=== PATIENT | female | born 1960 | race Caucasian/White ===

== ENCOUNTER 2017-04-16 10:00 | Emergency (ER) | payer BC, OTHER ==
[~2017-04-16] VITALS: Ht 162.6 cm; Wt 128.4 kg
[~2017-04-16 10:00] MED LIST: ASPIRIN325 PO; CELEXA40 MG PO; CIPROFLOXACIN500 M1 PO; CITRATE OF MAG296 ML PO; COLACE100 MG PO; CYMBALTA30 MG PO; ESTRACE0.5 MG PO; FLEXERIL PO; HYDROCODON-ACE1 EACH PO; HYDROCODONE-AP1 EAC6 PO; IBUPROFEN 600600 M1 PO; IBUPROFEN 800800 MG PO; LIPITOR 20 MG T20 M1 PO; NAPROSYN500 MG PO; NOHOMEMEDICATIONS; NORCO 5-325 TA1 EACH PO; PERCOCET 5-3251 EACH PO; SPIRONOLACTONE50 MG PO; SYNTHROID137 MCG PO
[2017-04-16 11:07] LABS: HEMATOCRIT 41.8 % (37.0-47.0); HEMOGLOBIN 14.4 gm/dL (12.0-15.0); MCHC 34.3 g/dL (28.0-37.0); MCV 93.3 fL (80.0-100.0); PLATELET COUNT 304 thou/uL (150-400); RBC 4.48 mil/uL (4.20-5.00)
[2017-04-16 11:10] LABS: MANUAL DIFF YES
[2017-04-16 11:15] LABS: POTASSIUM 4.2 mmol/L (3.5-5.1)
[2017-04-16 11:18] LABS: PROTIME 10.6 Seconds (9.3-11.4)
[2017-04-16 11:32] LABS: ALBUMIN 3.5 g/dL (3.4-5.0); TOTAL BILIRUBIN 0.8 mg/dL (<0.1-1.0); TOTAL PROTEIN 7.8 g/dL (6.4-8.2)
[2017-04-16 11:36] LABS: URINE BILIRUBIN NEGATIVE (Negative); URINE BLOOD 1+ (Negative); URINE COLOR YELLOW; URINE GLUCOSE-RANDOM* NEGATIVE (Negative); URINE KETONES NEGATIVE (Negative); URINE NITRITE NEGATIVE (Negative); URINE PROTEIN (DIPSTICK) 1+ (Negative); URINE SPECIFIC GRAVITY 1.015 (1.003-1.035)
[2017-04-16 12:03] LABS: SQUAMOUS >10 Many /LPF (0-3)
[2017-04-16 12:04] LABS: CASTS None Seen /LPF (None Seen); CRYSTALS None Seen /LPF (None Seen)
[2017-04-16 12:05] LABS: BACTERIA 1-9 Few /HPF (None Seen); URINE RBC 3-10 Few /HPF (0-2); URINE WBC None Seen /HPF (0-5)
[2017-04-16 12:40] LABS: ABSOLUTE NEUTROPHILS 13.3 thou/uL (1.4-8.2); TOTAL CELL COUNT 100
[2017-04-16] MEDS ORDERED: ZPAK PO (13:08)
[2017-04-16] MEDS ORDERED: DELTASONE20 MG PO (13:09)
[2017-04-16 13:26] VITALS: BP 119/58
== END 2017-04-16 13:28 | disposition home or self-care (01) ==
LOC: ER 10:00
PROVIDERS: Physician Assistant
DX: J18.9 Pneumonia, unspecified organism (principal); B27.90 Infectious mononucleosis, unspecified without complication; E03.9 Hypothyroidism, unspecified; M79.7 Fibromyalgia; I10 Essential (primary) hypertension; Z90.89 Acquired absence of other organs; Z86.73 Personal history of transient ischemic attack (TIA), and cerebral infarction without residual deficits; Z90.710 Acquired absence of both cervix and uterus; Z87.891 Personal history of nicotine dependence

== ENCOUNTER 2018-01-17 21:18 | Emergency (ER) | payer BC, OTHER ==
[~2018-01-17] VITALS: Ht 162.6 cm; Wt 129.3 kg
--- NOTE | ~2018-01-17 | EKG ---
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 : 1960 Requested By: Nghia Fry Order Number: [id number] MD: Romero Molina Measurements Intervals [place] Rate: 71 P: 42 MA: 130 QRS: -16 QRSD: 94 T: 36 QT: 406 QTc: 442 Interpretive Statements Sinus rhythm No significant abnormality Compared to ECG 04/11/2016 19:41:57 No significant changes Electronically Signed On 01-18-2018 8:17:08 COPY MESSENGER by Romero Molina [email or web address] <ELECTRONICALLY SIGNED> By: Romero Molina MD, [facility] 01/18/18 0817 [id number] 34 Romero Molina MD, FACC /EPI
[~2018-01-17 21:18] MED LIST changes: +DELTASONE20 MG PO; +ZPAK PO
[2018-01-17 21:19] VITALS: BP 159/66
[2018-01-17] MEDS ORDERED: ALTACE10 MG PO (21:37)
[2018-01-17] MEDS ORDERED: METFORMIN HCL500 MG PO (21:37)
[2018-01-17] MEDS ORDERED: FLEXERIL PO (21:54)
== END 2018-01-17 22:19 | disposition home or self-care (01) ==
LOC: ER 21:18
DX: R07.89 Other chest pain (principal); I10 Essential (primary) hypertension; E78.5 Hyperlipidemia, unspecified; Z87.891 Personal history of nicotine dependence; Z90.49 Acquired absence of other specified parts of digestive tract; Z87.890 Personal history of sex reassignment; Z86.73 Personal history of transient ischemic attack (TIA), and cerebral infarction without residual deficits

== ENCOUNTER 2019-11-24 13:46 | Emergency (ER) | payer BC, OTHER ==
[~2019-11-24] VITALS: Ht 162.6 cm; Wt 137.4 kg
[~2019-11-24 13:46] MED LIST changes: +ALTACE10 MG PO; +METFORMIN HCL500 MG PO
[2019-11-24] MEDS ORDERED: NORCO 7.5-3251 EACH PO (17:45)
[2019-11-24] MEDS ORDERED: CYCLOBENZAPRINE10 MG PO (17:45)
[2019-11-24 18:00] VITALS: BP 178/98
== END 2019-11-24 18:15 | disposition home or self-care (01) ==
LOC: ER 13:46
DX: M54.5 Low back pain (principal); M54.2 Cervicalgia; M25.551 Pain in right hip; I10 Essential (primary) hypertension; E03.9 Hypothyroidism, unspecified; M79.7 Fibromyalgia; Z87.891 Personal history of nicotine dependence; Z90.89 Acquired absence of other organs; Z79.82 Long term (current) use of aspirin; Z98.51 Tubal ligation status; Z90.710 Acquired absence of both cervix and uterus; V49.40XA Driver injured in collision with unspecified motor vehicles in traffic accident, initial encounter; Y93.89 Activity, other specified; Y92.488 Other paved roadways as the place of occurrence of the external cause; Y99.8 Other external cause status

== ENCOUNTER 2020-01-06 14:27 | Emergency (ER) | payer BC, OTHER ==
[~2020-01-06] VITALS: Ht 162.6 cm; Wt 135.2 kg
[~2020-01-06 14:27] MED LIST changes: +CYCLOBENZAPRINE10 MG PO; +NORCO 7.5-3251 EACH PO
[2020-01-06 15:25] LABS: ABSOLUTE NEUTROPHILS 6.3 thou/uL (1.4-8.2); BASOPHILS 0.7 % (0.0-2.0); EOSINOPHILS 2.2 % (0.0-3.0); HEMATOCRIT 46.3 % (37.0-47.0); HEMOGLOBIN 15.3 gm/dL (12.0-15.0); LYMPHOCYTES 31.5 % (24.0-44.0); MCH 31.2 pg (26.0-34.0); MCHC 33.1 g/dL (28.0-37.0); MCV 94.5 fL (80.0-100.0); MONOCYTES 6.5 % (1.0-8.0); PLATELET COUNT 372 thou/uL (150-400); POLYS 59.1 % (36.0-66.0); RBC 4.91 mil/uL (4.20-5.00); RDW 14.1 % (10.5-14.5); WBC 10.7 thou/uL (4.0-11.0)
[2020-01-06 15:35] LABS: APTT 29.2 Seconds (24.5-32.8); PROTIME 10.1 Seconds (9.3-11.4)
[2020-01-06 15:36] LABS: ANION GAP 8 mmol/L (7-16); BUN 13 mg/dL (7-18); CALCIUM 9.4 mg/dL (8.5-10.1); CHLORIDE 100 mmol/L (98-107); CO2 30 mmol/L (21-32); CREATININE 0.9 mg/dL (0.6-1.0); GLUCOSE 108 mg/dL (74-106); POTASSIUM 3.7 mmol/L (3.5-5.1); SODIUM 138 mmol/L (136-145)
[2020-01-06 15:42] LABS: ALBUMIN 4.2 g/dL (3.4-5.0); SGOT 18 U/L (15-37); SGPT 25 U/L (30-65); TOTAL BILIRUBIN 0.7 mg/dL (<0.1-1.0); TOTAL PROTEIN 8.5 g/dL (6.4-8.2); TROPONIN-I <0.06 ng/mL (<0.06)
--- NOTE | 2020-01-06 17:04 | EKG ---
[facility] [place] [address] ELECTROCARDIOGRAM REPORT Name: ROMAN MARX Room #: [facility].#: [id number] Admission: 01/06/20 Attend Phys: Discharge: Date of : 62 Report #: [id number] THIS REPORT FOR: cc: Franklin Coley MD, Steven E. 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: [facility] : 1960 Requested By: Cruz Gutiérrez Order Number: [id number] MD: Chava Santiago Measurements Intervals [place] Rate: 64 P: 40 OK: 139 QRS: -21 QRSD: 93 T: 51 QT: 451 QTc: 466 Interpretive Statements Sinus rhythm Probable left atrial enlargement Borderline left axis deviation Abnormal R-wave progression, late transition Compared to ECG 01/17/2018 21:35:22 No significant changes Electronically Signed On 01-06-2020 17:03:52 BLISTER PACKAGING MACHINE OPERATOR by Chava Santiago [email or web address] <ELECTRONICALLY SIGNED> By: Chava Santiago MD 01/06/20 1703 1540 1540 Chava Santiago MD /EPI
[2020-01-06 18:26] VITALS: BP 177/75
== END 2020-01-06 18:40 | disposition home or self-care (01) ==
LOC: ER 14:27
PROVIDERS: Emergency Medicine
DX: R51 Headache (principal); E03.9 Hypothyroidism, unspecified; M79.7 Fibromyalgia; Z90.49 Acquired absence of other specified parts of digestive tract; Z90.711 Acquired absence of uterus with remaining cervical stump; Z86.73 Personal history of transient ischemic attack (TIA), and cerebral infarction without residual deficits; Z90.721 Acquired absence of ovaries, unilateral; Z98.51 Tubal ligation status; Z87.891 Personal history of nicotine dependence

== ENCOUNTER 2021-05-21 11:56 | Emergency (ER) | payer BC, OTHER ==
[~2021-05-21] VITALS: Ht 162.6 cm; Wt 133.8 kg
[2021-05-21] MEDS ORDERED: NORCO5 PO (13:07)
[2021-05-21 14:18] VITALS: BP 119/63
== END 2021-05-21 14:19 | disposition home or self-care (01) ==
LOC: ER 11:56
DX: S92.512A Displaced fracture of proximal phalanx of left lesser toe(s), initial encounter for closed fracture (principal); F17.210 Nicotine dependence, cigarettes, uncomplicated; I10 Essential (primary) hypertension; M79.7 Fibromyalgia; E03.9 Hypothyroidism, unspecified; Z86.73 Personal history of transient ischemic attack (TIA), and cerebral infarction without residual deficits; Z98.51 Tubal ligation status; Z79.2 Long term (current) use of antibiotics; Z79.84 Long term (current) use of oral hypoglycemic drugs; Z79.82 Long term (current) use of aspirin; Z90.711 Acquired absence of uterus with remaining cervical stump; Z90.89 Acquired absence of other organs; X50.1XXA Overexertion from prolonged static or awkward postures, initial encounter; Y93.89 Activity, other specified; Y92.89 Other specified places as the place of occurrence of the external cause; Y99.8 Other external cause status